=== PATIENT | female | born 1995 ===

== ENCOUNTER 2020-09-01 11:23 | Outpatient (CLI) | payer OTHER ==
[~2020-09-01] VITALS: Ht 160 cm; Wt 61.2 kg
[2020-09-01] MEDS ORDERED: PRENATAL TABLE1 EAC3 (13:13)
== END 2020-09-01 13:42 | disposition left against medical advice (07) ==
LOC: OBS/DEL 11:23 → CLINIC 11:23 → LDR 11:23 → OBS/DEL 11:23 → LDR 12:41 → OB/GYN 12:41 → CLINIC 13:42 → OBS/DEL 13:42 → EDSTATUS 10-18 14:08
PROVIDERS: ATTEND Obstetrics & Gynecology
DX: O99.612 Diseases of the digestive system complicating pregnancy, second trimester (principal); K52.89 Other specified noninfective gastroenteritis and colitis; Z3A.22 22 weeks gestation of pregnancy; Z20.822 Contact with and (suspected) exposure to COVID-19